=== PATIENT | female | born 1970 | race African-American/Black ===

== ENCOUNTER 2017-01-13 09:13 | Emergency (ER) | payer OTHER ==
--- NOTE | 2017-01-13 09:46 | PDOC ---
History of Present Illness - General Chief Complaint: Chest Pain Stated Complaint: CHEST PAIN Time Seen by Provider: 01/13/17 09:37 History Source: Patient Exam Limitations: No Limitations - History of Present Illness Initial Comments: 01/13/17 09:45 46 y.o. female with a PMH of HTN and pericarditis presents today with acute onset of L sided chest pain. Patient states the pain is stabbing, 10/10 and relieved by leaning forward. Patient also notes associated shortness of breath upon exertion. Patient notes the symptoms are similar to previous presentation of pericarditis (08/2016) which occurred 1-2 days following a hysterectomy however at that time patient was not short of breath. Patient notes her mother is and had a h/o SC as well as PE. Associated Symptoms: reports: chest pain Past History - Past Medical History Allergies/Adverse Reactions: Allergies Allergy/AdvReac Type Severity Reaction Status Date / Time No Known Allergies Allergy Verified 01/13/17 09:59 Home Medications: Ambulatory Orders Amlodipine Besylate [Norvasc -] 2.5 mg PO DAILY 01/13/17 Ibuprofen [Motrin -] 600 mg PO BID #20 tablet 01/13/17 - Psycho/Social/Smoking Cessation Hx Suicidal Ideation: No Smoking History: Never smoked Review of Systems - Review of Systems Constitutional: Yes: Other (No fever, chills, malaise, unintentional weight loss ) HEENTM: Yes: Other (No visual changes, no hearing loss, no tinnitus, no sore throat) Respiratory: Yes: Other ((+) shortness of breath, worse with exertion, no cough , no wheezing, no hemoptysis) Cardiac (ROS): Yes: Chest Pain ((+) L sided subclavicular "sharp"chest pain with no radiation), Other (L sided clavicular "sharp" chest pain, 10/10 non- radiating; no palpitations, edema, syncope ) ABD/GI: Yes: Other (No constipation, diarrhea, rectal bleeding, abdominal pain) : Yes: Other (No dysuria, hematuria, increased frequency, increased urgency) Musculoskeletal: Yes: Other (No back pain, no joint pain, no muscle pain, no gout) Psychiatric: Yes: Other (No anxiety, depression, suicidial or homicidal ideation ) All Other Systems: Reviewed and Negative *Physical Exam - Physical Exam General Appearance: Yes: Nourished, Appropriately Dressed HEENT: positive: EOMI, MILLER Neck: positive: Trachea midline, Supple Respiratory/Chest: positive: Lungs Clear, Normal Breath Sounds, Other. 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 female with a PMH of HTN and Pericarditis (08/2016) who presents to the ED c/o 1 day h/o of L sided "stabbing" non-radiating chest pain. EKG showed no [place] prolongation or T wave inversions thus making pericarditis less likely. Moreover, Troponin was (-) x1 and bedside ultrasound showed no pericardial effusion (r/o pericarditis --> tamponade) as well as no RV strain or deviated septum (r/o PE). Heart score of 2. 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 Sanchez (affliated with [facility]) recommended repeat Troponin and outpatient follow up. Patient chose to take her own ASA during course of admission D-dimer (283); CT was negative for PE and repeat Troponin was negative. PLAN 1. Likely musculoskeletal chest pain; patient to f/u with block press operator as outpatient *DC/Admit/Observation/Transfer Diagnosis at time of Disposition: Chest pain Qualifiers: Chest pain type: unspecified Qualified Code(s): R07.9 - Chest pain, unspecified - Discharge Dispostion Disposition: HOME Condition at time of disposition: Improved - Prescriptions Prescriptions: Ibuprofen [Motrin -] 600 mg PO BID #20 tablet - Referrals Referrals: Pat Peters MD [Primary Care Provider] - - Patient Instructions Printed Discharge Instructions: DI for Atypical Chest Pain, DI for Chest Pain Additional Instructions: Please return to the Emergency Department should you experience severe chest pain or shortness of breath. - Attestations Physician Attestion: 01/13/17 15:26 I, Dr. Prema Leos, attest that this document has been prepared under my direction and personally reviewed by me in its entirety. I further attest, that it accurately reflects all work, treatment, procedures and medical decision -making performed by me.
[2017-01-13 10:08] VITALS: BP 127/97; PULSE 94; TEMP 98.2; BMI 30.5
[2017-01-13 10:35] LABS: MCH 26.2 pg (25.7-33.7); MCHC 32.1 g/dl (32.0-36.0); MEAN CELL VOLUME 81.6 fl (80-96); MEAN PLT VOLUME 9.3 fl (7.5-11.1); PLATELET COUNT 201 K/MM3 (134-434); RDW 16.7 % (11.6-15.6); WHITE BLOOD COUNT 7.7 K/mm3 (4.0-10.0)
--- NOTE | 2017-01-13 10:49 | PDOC ---
Heart Score/ECG Review - History History: Slightly suspicious - Electrocardiogram EKG: Normal - Age Age: 45-65 - Risk Factors Risk Factors Heart Score: Yes Hx Hypertension, Yes Positive family hx of cardiac disease Based on the list above the patient has:: 1-2 risk factors - Troponin Troponin: </= normal limit - Score Heart Score - Total: 2 #1 General ECG Interpretation: Sinus Rhythm, Normal Rate (88bpm), Normal Intervals , No acute ischemic changes Compared to previous ECG there are: No significant change - ECG Intrepretation Rhythm: Regularly Irregular - [place]: Normal - ECG Impressions Normal ECG: Yes
[2017-01-13 11:02] LABS: ANION GAP 5 (8-16); CALCIUM 8.5 mg/dL (8.5-10.1); CO2 28 mmol/L (21-32); CREATININE 0.6 mg/dL (0.55-1.02); GLUCOSE,RANDOM 86 mg/dL (74-106)
[2017-01-13 11:04] LABS: TROPONIN I < 0.02 ng/ml (0.00-0.05)
[2017-01-13] MEDS ORDERED: IBUPROFEN 600 MG TABLET (FP) PO ONE ×2 (12:46→13:01)
[2017-01-13 14:08] LABS: TROPONIN I < 0.02 ng/ml (0.00-0.05)
--- NOTE | 2017-01-15 14:49 | EKG ---
Test Reason : Blood Pressure : / mmHG Vent. Rate : 088 BPM Atrial Rate : 088 BPM P-R Int : 138 ms QRS Dur : 072 ms QT Int : 340 ms P-R-T Axes : 063 036 012 degrees QTc Int : 411 ms POOR DATA QUALITY, INTERPRETATION MAY BE ADVERSELY AFFECTED NORMAL SINUS RHYTHM NORMAL ECG WHEN COMPARED WITH ECG OF 23-FEB-2005 15:19, NO SIGNIFICANT CHANGE WAS FOUND Confirmed by VALENTINA SCHILLING MD ([id number]) on 01/15/2017 2:49:33 PM Referred By: Confirmed By:VALENTINA SCHILLING MD
== END 2017-01-13 15:57 | disposition home or self-care (01) ==
LOC: JER 09:13
DX: R07.89 Other chest pain (principal)
CPT/HCPCS: 36415; 71020-TC; 71275-TC; 80048; 82550; 84484; 85027; 85379; 93005; 93010; 99283-25

== ENCOUNTER 2017-04-29 11:19 | Emergency (ER) | payer OTHER ==
[2017-04-29 11:38] VITALS: BMI 30.9
[2017-04-29] MEDS ORDERED: KETOROLAC TROMETHAMINE 60 MG/2 ML VIAL IM ONE (14:20)
--- NOTE | 2017-04-29 14:23 | PDOC ---
History of Present Illness - General Chief Complaint: Pain, Acute Stated Complaint: PAIN/ RT SIDE, BACK Time Seen by Provider: 04/29/17 14:02 History Source: Patient Exam Limitations: No Limitations - History of Present Illness Initial Comments: 04/29/17 14:15 The patient is a 47F with a PMH of HTN and nephrolithiasis who presents to the ED with R flank pain. The pain has been going on for 1 week. She describes it as a sharp pain in her R flank, radiates to her groin, and feels slightly better with 600 motrin. She was diagnosed with a nephrolithiasis at [facility] in January by CT scan and followed up with her urologist 1 week ago who was pending the CT results because of release of information forms. LMP: doesn't get one 2/2 partial hysterectomy Past History - Past Medical History Allergies/Adverse Reactions: Allergies Allergy/AdvReac Type Severity Reaction Status Date / Time No Known Allergies Allergy Verified 04/29/17 11:34 Home Medications: Ambulatory Orders Amlodipine Besylate [Norvasc -] 2.5 mg PO DAILY 01/13/17 Aspirin [ASA -] 81 mg PO DAILY 04/29/17 Cardiac Disorders: Yes (pericarditis) COPD: No HTN: Yes - Suicide/Smoking/Psychosocial Hx Smoking History: Never smoked Have you smoked in the past 12 months: No Hx Alcohol Use: No Drug/Substance Use Hx: No Substance Use Type: None Review of Systems - Review of Systems Able to Perform ROS?: Yes Comments:: 04/29/17 14:28 GENERAL/CONSTITUTIONAL: No fever or chills. No weakness. HEAD, EYES, EARS, NOSE AND THROAT: No change in vision. No ear pain or discharge. No sore throat. GASTROINTESTINAL: No nausea, vomiting, diarrhea, constipation, or abdominal pain. GENITOURINARY: Positive for R flank pain. No dysuria, frequency, hematuria, or change in urination. CARDIOVASCULAR: No chest pain, palpitations, or lightheadedness. RESPIRATORY: No cough, wheezing, shortness of breath, or hemoptysis. MUSCULOSKELETAL: No joint or muscle swelling or pain. No neck or back pain. SKIN: No rash or lesions. NEUROLOGIC: No headache, numbness, tingling, weakness, loss of consciousness, or change in strength/sensation. ENDOCRINE: No increased thirst. No abnormal weight change. HEMATOLOGIC/LYMPHATIC: No anemia, easy bleeding, or history of blood clots. ALLERGIC/IMMUNOLOGIC: No hives or skin allergy. Is the patient limited Czech proficient: No *Physical Exam - Vital Signs Last Vital Signs Temp Pulse Resp BP Pulse Ox 98.2 F 70 20 137/88 100 04/29/17 11:34 04/29/17 11:34 04/29/17 11:34 04/29/17 11:34 04/29/17 11:34 - Physical Exam Comments: 04/29/17 14:29 GENERAL: Well developed, well nourished. Awake and alert. No acute distress. HEENT: Normocephalic, atraumatic. Moist mucous membranes. Oropharynx is clear. NECK: Supple. Full ROM. No JVD. Carotid pulses 2+ and symmetric, without bruits. No thyromegaly. No lymphadenopathy. CARDIOVASCULAR: Regular rate and rhythm. No murmurs, rubs, or gallops. Distal pulses are 2+ and symmetric. PULMONARY: No evidence of respiratory distress. Lungs clear to auscultation bilaterally. No wheezing, rales or rhonchi. ABDOMINAL: Soft. Non-tender. Non-distended. No rebound or guarding. No organomegaly. Normoactive bowel sounds. GENITOURINARY: R sided CVA tenderness. No L sided CVA tenderness. MUSCULOSKELETAL: Normal range of motion at all joints. No bony deformities or tenderness. EXTREMITIES: No cyanosis. No clubbing. No edema. No calf tenderness. SKIN: Warm and dry. Normal capillary refill. No rashes. No jaundice. NEUROLOGICAL: Alert, awake, appropriate. Normal speech. Gait is normal without ataxia. PSYCHIATRIC: Cooperative. Good eye contact. Appropriate mood and affect. Medical Decision Making - Medical Decision Making 04/29/17 14:30 The patient is a 47F with a hx of nephrolithiaisis and HTN who presents to the ED with complaints of R flank pain. She was previously diagnosed with nephrolithiasis in January and this is most likely renal colic. I will give toradol and have a UA sent on the patient. If the toradol does not help, she may warrant repeat imaging in case the stone moved. 04/29/17 17:18 UA negative. Will order U/S of kidneys and transvag to r/u causes. Will reassess when imaging returns. 04/29/17 19:58 U/S indicates ovarian cysts. I have informed the patient to f/u with [facility] and PCP for her pain. Patient agrees and is ready for d/c. *DC/Admit/Observation/Transfer Diagnosis at time of Disposition: Back pain Qualifiers: Back pain location: low back pain Chronicity: acute Back pain laterality: unspecified Sciatica presence: without sciatica Qualified Code(s): M54.5 - Low back pain; M54.5 - Low back pain - Discharge Dispostion Disposition: HOME Condition at time of disposition: Stable Admit: No - Referrals Referrals: Audrey Peters MD [Primary Care Provider] - Jay Medina MD [Staff Physician] - - Patient Instructions Printed Discharge Instructions: Ovarian Cyst, DI for Ovarian Cyst Additional Instructions: Please return to the ER if symptoms persist, worsen, or new symptoms arise. Please follow up with your primary care physician in 2-3 days. Also, follow up with your [facility] doctor regarding your ovarian cysts. Please return to the ER if you have any signs or symptoms of chest pain, shortness of breath, uncontrollable fever, chills, nausea, vomiting, numbness, tingling, or weakness in any part of your body, changes in vision, or slurred speech.
--- NOTE | 2017-04-29 15:08 | PDOC ---
Attending Attestation - Resident Resident Name: Mendez Eastman - ED Attending Attestation I have performed the following: I have examined & evaluated the patient, The case was reviewed & discussed with the resident, I agree w/resident's findings & plan, Exceptions are as noted - HPI HPI: 04/29/17 15:05 47-year-old female with history of hypertension well controlled on medications presents with 2 months of intermittent right low back pain/flank pain. Patient was initially evaluated at [facility] in January, had a normal urinalysis per report but a CAT scan that showed nephrolithiasis. Her aches 7 persistent since then, has been taking Motrin daily, and she finally saw a urologist 2 weeks ago and is waiting for him to get the results of the January CAT scan. She presents today because over the last week her right flank/right low back pain has worsened. No fevers or chills, no frequency or dysuria or hematuria, patient is status post hysterectomy but has both ovaries and has history of ovarian cysts, no unexpected vaginal bleeding. The symptoms are not necessarily positional, they do not radiate down the right leg and had no motor or sensory deficits. - Physicial Exam PE: 04/29/17 15:06 Vital signs normal. Comfortable seated in stretcher No midline spine tenderness Positive right CVA tenderness, positive right lower paraspinal discomfort to palpation without muscle swelling or erythema or ecchymosis. 5 and 5 flexion/extension at both hips/knees/ankle/toes, no pelvic mass or tenderness. - Medical Decision Making 04/29/17 15:07 47-year-old female with presumed diagnosis of nephrolithiasis presents with 2 months of intermittent right low back pain not relieved with Motrin over the last week. 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 Well-appearing and neurologically intact. Check urinalysis, trial of NSAIDs If hematuria, would repeat CT imaging to rule out stone or vascular process If no hematuria or infection, will pursue imaging with ultrasound to evaluate right ovary and right kidney Otherwise, consider outpatient MRI with chronic specialist.
[2017-04-29] MEDS ORDERED: KETOROLAC TROMETHAMINE 60 MG/2 ML VIAL ONE (15:55)
[2017-04-29 16:04] LABS: URINE APPEARANCE CLEAR; URINE BILIRUBIN NEGATIVE (NEGATIVE); URINE BLOOD NEGATIVE (NEGATIVE); URINE COLOR YELLOW; URINE GLUCOSE (UA) NEGATIVE (NEGATIVE); URINE KETONE NEGATIVE (NEGATIVE); URINE NITRITE NEGATIVE (NEGATIVE); URINE PROTEIN NEGATIVE (NEGATIVE); URINE UROBILINOGEN NEGATIVE mg/dL (0.2-1.0)
[2017-04-29 18:36] LABS: URINE LEUK ESTERASE Negative (NEGATIVE)
[2017-04-29 20:14] VITALS: BP 152/98; PULSE 67; TEMP 97.7
== END 2017-04-29 20:13 | disposition home or self-care (01) ==
LOC: JER 11:19
PROC: 3E0233Z Introduction of Anti-inflammatory into Muscle, Percutaneous Approach (ICD-10-PCS; principal; 2017-04-29)
DX: R10.31 Right lower quadrant pain (principal); Z87.442 Personal history of urinary calculi; N83.202 Unspecified ovarian cyst, left side
CPT/HCPCS: 76775-TC; 76830-TC; 81003; 84703; 96372; 99282-25

== ENCOUNTER 2017-06-02 10:24 | Day surgery (SDC) | payer OTHER ==
[~2017-06-02 10:24] MED LIST: LACTATED RINGERS SOLUTION 1,000 ML IV SCH; LEVOFLOXACIN 500 MG PREMIX BAG IVPB ONE; ONDANSETRON 4 MG/2 ML VIAL IVPUSH PRN; oxyCODONE HCL 5 MG TABLET PO PRN
[2017-06-02] MEDS ORDERED: MIDAZOLAM HCL 2 MG/2 ML SINGLE DOSE VIAL ONE (10:56)
[2017-06-02 11:19] VITALS: BMI 30.9
[2017-06-02] MEDS ORDERED: LEVOFLOXACIN 500 MG PREMIX BAG IVPB ONE (11:42)
[2017-06-02 13:10] VITALS: TEMP 98
[2017-06-02 13:51] VITALS: BP 121/74; PULSE 59
--- NOTE | 2017-06-02 15:12 | OP ---
Operative Note - Note: Operative Date: 06/02/17 Pre-Operative Diagnosis: right renal stone Operation: right eswl Findings: 7 mm x 5 mm right lower pole stone Post-Operative Diagnosis: Same as Pre-op Surgeon: Bro Sandra Anesthesia: Fractional
== END 2017-06-02 14:15 | disposition home or self-care (01) ==
LOC: JASU-SURG 10:24
PROVIDERS: ATTEND Urology
PROC: 0TF3XZZ Fragmentation in Right Kidney Pelvis, External Approach (ICD-10-PCS; principal; 2017-06-02 11:45)
DX: N20.0 Calculus of kidney (principal)
CPT/HCPCS: 84703